=== PATIENT | female | born 2000 | race Caucasian/White ===

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

== ENCOUNTER 2019-03-19 12:25 | Emergency (ER) | payer SELFPAY ==
[2019-03-19] MEDS ORDERED: Bicillin LA 1.2 MILLION UNITS/2 ML SYRINGE ONE (14:24)
[2019-03-19] MEDS ORDERED: Dexamethasone 10 MG/ML VIAL ONE (14:24)
== END 2019-03-19 14:55 | disposition home or self-care (01) ==
LOC: MADERS 12:25
DX: J02.0 Streptococcal pharyngitis (principal)
CPT/HCPCS: 99283; J0561; J1100

== ENCOUNTER 2019-03-23 18:17 | Emergency (ER) | payer SELFPAY ==
[2019-03-23] MEDS ORDERED: Azithromycin 250 MG TAB ONE (18:53)
== END 2019-03-23 19:00 | disposition home or self-care (01) ==
LOC: MADERS 18:17
DX: J02.0 Streptococcal pharyngitis (principal)
CPT/HCPCS: 99282

== ENCOUNTER 2019-05-29 13:14 | Emergency (ER) | payer SELFPAY | END 2019-05-29 15:28 | disposition home or self-care (01) | LOC: MADERS 13:14 | DX: J10.1 Influenza due to other identified influenza virus with other respiratory manifestations (principal) | CPT/HCPCS: 87804; 99283 ==

== ENCOUNTER 2019-06-18 18:21 | Emergency (ER) | payer OTHER, SELFPAY ==
--- NOTE | 2019-06-18 19:10 | RAD ---
RIGHT HAND THREE VIEWS: History: Hand pain. FINDINGS: Slightly congenitially short middle phalanx of the little finger is incidentally seen. There are no s igns of fracture or dislocation. IMPRESSION: No evidence of fracture. POS: [facility]
== END 2019-06-18 18:58 | disposition home or self-care (01) ==
LOC: MADERS 18:21
DX: S60.221A Contusion of right hand, initial encounter (principal); W22.8XXA Striking against or struck by other objects, initial encounter